=== PATIENT | male | born 1950 | race Caucasian/White ===

== ENCOUNTER 2018-03-15 19:08 | Outpatient (CLI) | payer MEDICARE, OTHER | END 2018-03-15 19:09 | disposition critical access hospital (66) | LOC: EMS 19:08 | PROVIDERS: ATTEND Surgery | DX: S09.90XA Unspecified injury of head, initial encounter (principal); R41.82 Altered mental status, unspecified; W10.8XXA Fall (on) (from) other stairs and steps, initial encounter; Y92.008 Other place in unspecified non-institutional (private) residence as the place of occurrence of the external cause | CPT/HCPCS: A0425; A0429 ==

== ENCOUNTER 2018-03-15 19:26 | Emergency (ER) | payer MEDICARE, OTHER ==
[2018-03-15] MEDS: SODIUM CHLORIDE 0.9% 1,000 ML IV ONE (19:38)
--- NOTE | 2018-03-15 19:39 | ED Physician Documentation ---
PD HPI MAJOR TRAUMA - Stated complaint Stated Complaint: FELL DOWN STAIRS, COMBATIVE, UNRESPONSIVE 3 MINUTE - Chief complaint Chief Complaint: Trauma Hd/Nk - History obtained from History obtained from: Family, EMS - History of Present Illness Mechanism of injury: Fell Where injury occurred: Home Timing - onset: How many minutes ago (30) Injury(ies) location: Head, Face Pain level max: 0 Pain level now: 0 Associated symptoms: LOC, Amnesia Symptoms improve with: Nothing Worsens with: Other (nothing) Contributing factors: Intoxicated. No: Anticoagulated Similar symptoms before: Has not had sx before Recently seen: Not recently seen - Additional information Additional information: 67-year-old male with history of hypertension and CAD and a retired orthopedic surgeon here with EMS reported to have fallen 7 steps down the stairs of their house a few minutes ago. Per EMS the reported that he had probably 3 glasses of wine prior to falling. When they arrive patient was confused and combative. Patient arrived here on hard c-collar and cooperative. Patient does not recall what happened to him.Patient is denying any pain from any part of his body.Charge nurse called a trauma alert. Nurse funeral home makeup artist at the bedside. Trauma general surgeon arrived at 1943.Surgeon evaluated patient and spoke to the family and wanted chest x-ray done prior to taking the patient to the CT scan. Review of Systems Unable to obtain: Confused, Intoxicated Ten Systems: 10 systems reviewed and negative Constitutional: denies: Fever Eyes: denies: Decreased vision Throat: denies: Dental pain / toothache Cardiac: denies: Chest pain / pressure Respiratory: denies: Dyspnea GI: denies: Abdominal Pain, Nausea, Vomiting Musculoskeletal: denies: Neck pain, Back pain, Extremity pain Neurologic: reports: Confused, Altered mental status, Head injury, LOC. denies: Generalized weakness, Focal weakness, Difficulty speaking, Syncope, Seizure, Headache PD PAST MEDICAL HISTORY - Past Medical History Past Medical History: No Cardiovascular: Hypertension Respiratory: None Neuro: None Endocrine/Autoimmune: None GI: None : None HEENT: None Psych: None Musculoskeletal: None Derm: None - Past Surgical History Past Surgical History: Yes General: Hiatal hernia repair - Present Medications Home Medications: Ambulatory Orders Medication Instructions Recorded Confirmed Diltiazem HCl [Diltiazem ER] 240 mg PO DAILY 08/22/14 11/18/18 Diltiazem HCl [Diltiazem ER] 240 mg PO DAILY #30 capsule.er 12/17/13 03/15/18 Enalapril Maleate [Vasotec] 20 mg PO BID 12/17/13 03/15/18 Naproxen [Naprosyn] 250 mg PO BID 03/15/18 03/15/18 - Allergies Allergies/Adverse Reactions: Allergies Allergy/AdvReac Type Severity Reaction Status Date / Time No Known Drug Allergies Allergy Verified 03/15/18 19:33 - Social History Does the pt smoke?: No Smoking Status: Never smoker Does the pt drink ETOH?: Yes Does the pt have substance abuse?: No - Immunizations Immunizations are current?: Yes - POLST Patient has POLST: No PD ED PE NORMAL - General General: No acute distress, Well developed/nourished, Other (Awake alert and cooperative) - HEENT HEENT: Atraumatic, PERRL, EOMI, Ears normal, Moist mucous membranes, Pharynx benign - Neck Neck: Other (Hard c-collar on) - Cardiac Cardiac: RRR, No murmur - Respiratory Respiratory: No respiratory distress, Clear bilaterally - Abdomen Abdomen: Normal bowel sounds, Soft, Non tender, Non distended - Back Back: No CVA TTP, No spinal TTP - Derm Derm: Normal color, Warm and dry - Extremities Extremities: No deformity, No tenderness to palpate, Normal ROM s pain, No edema - Neuro Neuro: armoured car escort 2-12 intact, No motor deficit, No sensory deficit, Normal speech, Other (Awake alert and oriented to his name, date and place. Disoriented to situation and event that occurred prior to coming to the emergency room) Eye Opening: Spontaneous Motor: Obeys Commands Verbal: Confused GCS Score: 14 - Psych Psych: Normal mood, Normal affect Results - Vitals Vitals: Vital Signs - 24 hr 03/15/18 03/15/18 03/15/18 19:27 19:50 20:15 Temperature 36.6 C Heart Rate 72 74 72 Respiratory 18 16 20 Rate Blood Pressure 169/87 H 165/92 H O2 Saturation 97 94 94 03/15/18 03/15/18 03/15/18 20:25 20:46 21:18 Temperature Heart Rate 74 74 76 Respiratory 14 14 20 Rate Blood Pressure 158/94 H 157/87 H 175/87 H O2 Saturation 96 99 95 03/15/18 03/15/18 03/15/18 21:35 22:02 22:14 Temperature Heart Rate 74 78 81 Respiratory 15 16 14 Rate Blood Pressure 168/78 H 168/78 H 176/79 H O2 Saturation 95 95 96 03/15/18 22:27 Temperature Heart Rate 78 Respiratory 14 Rate Blood Pressure 171/88 H O2 Saturation 95 Oxygen O2 Source Room air - Labs Labs: Laboratory Tests 03/15/18 03/15/18 03/15/18 19:35 19:35 19:35 WBC 7.2 RBC 4.81 Hgb 15.4 Hct 45.3 MCV 94.2 H MCH 32.0 H MCHC 33.9 RDW 13.0 Plt Count 220 MPV 7.2 L Neut # (Auto) 3.8 Lymph # (Auto) 2.4 [place] # (Auto) 0.8 Eos # (Auto) 0.1 Baso # (Auto) 0.0 Absolute Nucleated RBC 0.01 Nucleated RBC % 0.1 Sodium 135 Potassium 3.4 L Chloride 103 Carbon Dioxide 23 Anion Gap 9.0 BUN 20 Creatinine 0.9 Estimated GFR (MDRD) 84 L Glucose 167 H Calcium 8.6 Total Bilirubin 0.8 AST 31 ALT 31 Alkaline Phosphatase 62 Total Creatine Kinase 318 H Troponin I < 0.04 Total Protein 7.1 Albumin 4.3 Globulin 2.8 Albumin/Globulin Ratio 1.5 Lipase 31 Urine Color Urine Clarity Urine pH Ur Specific [place] Urine Protein Urine Glucose (UA) Urine Ketones Urine Occult Blood Urine Nitrite Urine Bilirubin Urine Urobilinogen Ur Leukocyte Esterase Ur Microscopic Review Urine Culture Comments Ethyl Alcohol 03/15/18 03/15/18 19:35 20:00 WBC RBC Hgb Hct MCV MCH MCHC RDW Plt Count MPV Neut # (Auto) Lymph # (Auto) [place] # (Auto) Eos # (Auto) Baso # (Auto) Absolute Nucleated RBC Nucleated RBC % Sodium Potassium Chloride Carbon Dioxide Anion Gap BUN Creatinine Estimated GFR (MDRD) Glucose Calcium Total Bilirubin AST ALT Alkaline Phosphatase Total Creatine Kinase Troponin I Total Protein Albumin Globulin Albumin/Globulin Ratio Lipase Urine Color YELLOW Urine Clarity CLEAR Urine pH 6.0 Ur Specific [place] 1.025 Urine Protein NEGATIVE Urine Glucose (UA) NEGATIVE Urine Ketones TRACE Urine Occult Blood TRACE-LYSE Urine Nitrite NEGATIVE Urine Bilirubin NEGATIVE Urine Urobilinogen 0.2 (NORMAL) Ur Leukocyte Esterase NEGATIVE Ur Microscopic Review NOT INDICATED Urine Culture Comments NOT INDICATED Ethyl Alcohol 228.4 PD MEDICAL DECISION MAKING - ED course Complexity details: re-evaluated patient (2224 patient updated on recommendation of reservation agent from Shannan Mosley. Particularly about controlling his blood pressure.), considered differential (Subdural hemorrhage, subarachnoid hemorrhage, brain contusion, concussion, alcohol intoxication), d/w patient, d/w family ([address] family informed of CT head scan abnormality results. Explained importance of being transferred to a higher level of care. They agreed.2199 patient and family updated on the transfer via helicopter and they agreed.), d/w work and family life consultant (2217 Telephone call from Shannan Mosley reservation agent Dr. Heart. Case discussed and updated her on patient's current neuro status and blood pressure. She stated she wants to systolic blood pressure to be 140 or less. She recommended giving labetalol and Nitropaste.), other (2056 radiologist transportation aid informed me that there is a subarachnoid hemorrhage in the right MCA distribution. 2114Spoke to transfer center regarding patient case. She informed me that Dr. Driscoll is in surgery right now and would like more information about patient's condition and CT head scan. Information provided to the transfer center. 2199 Her [facility] transfer center had called back and Dr. box had accepted the patient transfer. But the reservation agent may be calling to me to get more information as a work and family life consultant.) Departure - Departure Disposition: 02 Transfer Acute Care Hosp Clinical Impression: Traumatic subdural hemorrhage Qualifiers: Encounter type: initial encounter Loss of consciousness presence/duration: with LOC of 30 min or less Qualified Code(s): S06.5X1A - Traumatic subdural hemorrhage with loss of consciousness of 30 minutes or less, initial encounter Alcohol intoxication Qualifiers: Complication of substance-induced condition: uncomplicated Qualified Code(s): F10.920 - Alcohol use, unspecified with intoxication, uncomplicated Condition: Stable
[2018-03-15 19:44] LABS: BASOPHILS % (AUTO) 0.7 %; EOSINOPHILS # (AUTO) 0.1 10^3/uL (0.0-0.7); EOSINOPHILS % (AUTO) 1.4 %; HGB - HEMOGLOBIN 15.4 g/dL (14.0-18.0); LYMPHOCYTES # (AUTO) 2.4 10^3/uL (1.5-3.5); LYMPHOCYTES % (AUTO) 33.8 %; MEAN CORPUSCULAR HGB CONC 33.9 g/dL (32.0-36.0); MEAN CORPUSCULAR VOLUME 94.2 fL (80.0-94.0); MEAN PLATELET VOLUME 7.2 fL (7.4-11.4); MONOCYTES # (AUTO) 0.8 10^3/uL (0.0-1.0); MONOCYTES % (AUTO) 10.9 %; NEUTROPHILS # (AUTO) 3.8 10^3/uL (1.5-6.6); NEUTROPHILS % (AUTO) 53.2 %; PLT - PLATELET COUNT 220 10^3/uL (130-450); RED BLOOD COUNT 4.81 10^6/uL (4.70-6.10); WHITE BLOOD COUNT 7.2 x10^3/uL (4.8-10.8)
[2018-03-15 19:59] LABS: ALBUMIN 4.3 g/dL (3.2-5.5); ALBUMIN/GLOBULIN RATIO 1.5 (1.0-2.2); BILIRUBIN,TOTAL 0.8 mg/dL (0.2-1.0); CALCIUM 8.6 mg/dL (8.5-10.3); CREATININE 0.9 mg/dL (0.6-1.2); TOTAL PROTEIN 7.1 g/dL (6.7-8.2)
[2018-03-15 20:15] LABS: BILIRUBIN,URINE NEGATIVE (NEGATIVE); GLUCOSE, URINE (UA) NEGATIVE (NEGATIVE); KETONES,URINE (UA) TRACE mg/dL (NEGATIVE); LEUKOCYTE ESTERASE, URINE NEGATIVE (NEGATIVE); NITRITE,URINE NEGATIVE (NEGATIVE); OCCULT BLOOD,URINE TRACE-LYSE (NEGATIVE); PROTEIN,URINE NEGATIVE (NEGATIVE); UROBILINOGEN,URINE 0.2 (NORMAL) E.U./dL (NORMAL)
[2018-03-15 20:17] LABS: CLARITY,URINE CLEAR (CLEAR)
[2018-03-15] MEDS ORDERED: IOPAMIDOL-300 100 ML VIAL ONE (20:18)
--- NOTE | 2018-03-15 20:20 | XRAY Report ---
Reason: fall Procedure Date: 03/15/2018 Accession Number: [id number] / [id number] Procedure: XR - Chest 1 View X-Ray CPT Code: 87595 FULL RESULT: EXAM: CHEST RADIOGRAPHY EXAM DATE: 03/15/2018 07:56 PM. CLINICAL HISTORY: Fall. COMPARISON: None. TECHNIQUE: 1 view. FINDINGS: Lungs/Pleura: No focal opacities evident. No pleural effusion. No pneumothorax. Mediastinum: Within exam limitations, the cardiomediastinal contour is normal. Other: Multiple ECG leads overlie the chest. IMPRESSION: No acute findings. RADIA
--- NOTE | 2018-03-15 20:22 | XRAY Report ---
Reason: fall 7 feet intoxicated Procedure Date: 03/15/2018 Accession Number: [id number] / [id number] Procedure: XR - Pelvis 1 View CPT Code: FULL RESULT: EXAM: PELVIS RADIOGRAPHY EXAM DATE: 03/15/2018 07:56 PM. CLINICAL HISTORY: Fall 7 feet intoxicated. COMPARISON: None. TECHNIQUE: 1 view. FINDINGS: Bones: No acute fracture identified Joints: No dislocation or pubic symphysis widening. Moderate degenerative changes of the hip joints.. Soft Tissues: Unremarkable IMPRESSION: No acute findings. RADIA
[2018-03-15] MEDS: IOPAMIDOL-300 100 ML VIAL IVP ONE (20:25)
--- NOTE | 2018-03-15 20:47 | CT Report ---
Reason: fall, confused Procedure Date: 03/15/2018 Accession Number: [id number] / [id number] Procedure: CT - Cervical Spine W/O CPT Code: FULL RESULT: EXAM: CT CERVICAL SPINE WITHOUT CONTRAST DATE: 03/15/2018 08:13 PM. HISTORY: Fall, confused. COMPARISONS: None. TECHNIQUE: Thin-section axial images were acquired of the cervical spine without contrast. Post-processing: Coronal and sagittal reformats. Other: None. In accordance with CT protocol optimization, one or more of the following dose reduction techniques were utilized for this exam: automated exposure control, adjustment of mA and/or KV based on patient size, or use of iterative reconstructive technique. FINDINGS: Alignment: Mild leftward curvature inferior aspect cervical spine. Bones: No fracture or bone lesion. Interspace Levels/Facets: C1-C2: Minimal calcification adjacent to the dens. No significant stenosis. C2-C3: Facet hypertrophy without significant stenosis. C3-C4: Facet hypertrophy without significant stenosis. C4-C5: Anterior osteophytes with more prominent facet hypertrophy causing moderate to severe right and minimal left foraminal stenosis. C5-C6: Disk space narrowing with facet hypertrophy and small posterior osteophytes causing moderate to severe bilateral foraminal stenosis. C6-C7: Disk space narrowing with small osteophytes and facet hypertrophy with osteophytes eccentric to the left causing moderate left foraminal stenosis. C7-T1: Facet hypertrophy without significant stenosis. Other: Small right mastoid fluid. Ossicles within the nuchal ligament. IMPRESSION: Multilevel degenerative disk disease without evidence of cervical spine fracture. RADIA
--- NOTE | 2018-03-15 21:01 | CT Report ---
Reason: fall 7 feet/steps stairs, confused Procedure Date: 03/15/2018 Accession Number: [id number] / [id number] Procedure: CT - Head W/O CPT Code: FULL RESULT: EXAM: CT HEAD EXAM DATE: 03/15/2018 08:13 PM. CLINICAL HISTORY: Fall 7 feet/steps stairs, confused. COMPARISON: None. TECHNIQUE: Multiaxial CT images were obtained from the foramen magnum to the vertex. Reformats: Sagittal and coronal. IV contrast: None. In accordance with CT protocol optimization, one or more of the following dose reduction techniques were utilized for this exam: automated exposure control, adjustment of mA and/or KV based on patient size, or use of iterative reconstructive technique. FINDINGS: Parenchyma: Miller-white differentiation is distinct. No mass-effect or midline shift. Extraaxial Spaces: High density within the extra-axial space intercalating along the anterior aspect of the right middle cranial fossa and extending to the sylvian fissure as well as along the right frontal lobe. No significant mass-effect. Ventricles: Normal in size and position. Sinuses and Orbits: Small right mastoid fluid. Bones: No acute fracture seen. Other: None. IMPRESSION: Acute subarachnoid hemorrhage extending along the right middle cerebral artery to the anterior aspect of the right middle cranial fossa, right sylvian fissure as well as along the right frontal lobe. No significant mass-effect. No midline shift. RADIA The above findings were discussed with Valery Lomeli by Dr. David Marcelino at 21:00 hrs on 03/15/18.
--- NOTE | 2018-03-15 21:06 | CT Report ---
Reason: fell face forward, 7 feet, left facial contusion, Procedure Date: 03/15/2018 Accession Number: [id number] / [id number] Procedure: CT - Facial Bones W/O CPT Code: FULL RESULT: EXAM: CT MAXILLOFACIAL WITHOUT CONTRAST EXAM DATE: 03/15/2018 08:13 PM. CLINICAL HISTORY: Fell face forward, 7 feet, left facial contusion. COMPARISONS: None. TECHNIQUE: Thin-section axial images were acquired of the face without contrast. Post-processing: Coronal and sagittal reformats. Other: None. In accordance with CT protocol optimization, one or more of the following dose reduction techniques were utilized for this exam: automated exposure control, adjustment of mA and/or KV based on patient size, or use of iterative reconstructive technique. FINDINGS: Soft Tissue: Fat stranding in the left buccal region and left infraorbital tissues consistent with infiltrating hematoma. Orbits: Symmetric and unremarkable. Bones: There is a deformity of the nasal bones suggestive of an old fracture without significant displacement. There is some calcification adjacent to the left maxilla although without a well-defined fracture. Temporomandibular Joints: The temporomandibular joints are symmetric and normally located. Sinuses: Trace mucosal thickening. Other: None. IMPRESSION: 1. Left buccal and infraorbital hematoma without evidence of acute fracture. Old bilateral nasal bone fracture. RADIA
--- NOTE | 2018-03-15 21:18 | CT Report ---
Reason: fell forward, 7 steps stairs, intoxicated Procedure Date: 03/15/2018 Accession Number: [id number] / [id number] Procedure: CT - Chest W/ CPT Code: FULL RESULT: EXAM: CT CHEST EXAM DATE: 03/15/2018 08:22 PM. CLINICAL HISTORY: Fell forward, 7 steps stairs, intoxicated. COMPARISONS: None. TECHNIQUE: Routine helical CT imaging was performed through the chest. IV contrast: 100 mL Isovue-300. Reconstructions: Coronal and sagittal. In accordance with CT protocol optimization, one or more of the following dose reduction techniques were utilized for this exam: automated exposure control, adjustment of mA and/or KV based on patient size, or use of iterative reconstructive technique. FINDINGS: Examination mildly degraded by motion artifact. Lungs/Pleura: The lungs are clear. No consolidation, pleural effusion or pneumothorax. Patent airways. Mediastinum: Normal heart size. No aortic dissection. No mediastinal lymphadenopathy or hemorrhage. Bones: Minimally displaced fracture left anterolateral fourth rib. No additional acute fracture. There are several old healed left rib fractures. Visualized Abdomen: See separately dictated CT. Other: None. IMPRESSION: Minimally displaced fracture of the left fourth rib. Nondisplaced fractures of the left fifth, sixth and seventh ribs. No pneumothorax. Otherwise unremarkable exam. RADIA
--- NOTE | 2018-03-15 21:40 | CT Report ---
Reason: fall, intoxicated Procedure Date: 03/15/2018 Accession Number: [id number] / [id number] Procedure: CT - Abdomen/Pelvis W/ CPT Code: FULL RESULT: EXAM: CT ABDOMEN AND PELVIS EXAM DATE: 03/15/2018 08:22 PM. CLINICAL HISTORY: Fall, intoxicated. COMPARISONS: None. TECHNIQUE: Routine helical CT imaging was performed through the abdomen and pelvis. IV contrast: ISOVUE 300 100mL. Enteric contrast: No. Reconstructions: Coronal and sagittal. In accordance with CT protocol optimization, one or more of the following dose reduction techniques were utilized for this exam: automated exposure control, adjustment of mA and/or KV based on patient size, or use of iterative reconstructive technique. FINDINGS: Lung Bases: See separately dictated CT. Liver: There are multiple small circumscribed hypoattenuating lesions that are most likely cysts and measure up to 1.5 cm. No laceration or perihepatic fluid. Gallbladder/Bile Ducts: Unremarkable. Spleen: Normal. Pancreas: Normal. Adrenal Glands: Mild left adrenal thickening. Kidneys: Normal enhancement. Mild prominence of the left renal collecting system. 2 mm nonobstructing left renal stone inferiorly. Peritoneal Cavity/Bowel: Small hiatal hernia. Normal caliber bowel. There is diverticulosis. No free fluid or hemoperitoneum. No free air. No acute inflammatory changes. Normal appendix. Pelvic Organs: Mildly distended urinary bladder. The prostate gland is mildly enlarged. Vasculature: Mild atherosclerosis. Bones: No acute fracture. Other: Small fat-containing right inguinal hernia. IMPRESSION: No acute abnormality. RADIA
[2018-03-15 22:30] VITALS: BP 171/88
[2018-03-15] MEDS: LABETALOL 20 MG/4 ML SYRINGE IVP STA (22:34)
[2018-03-15] MEDS: NITROGLYCERIN 2% PASTE TOP STA (22:35)
== END 2018-03-15 22:50 | disposition short-term general hospital (02) ==
LOC: EDUNIT# → EDBD → ED 19:26
DX: S06.5X1A Traumatic subdural hemorrhage with loss of consciousness of 30 minutes or less, initial encounter (principal); S22.42XA Multiple fractures of ribs, left side, initial encounter for closed fracture; S00.532A Contusion of oral cavity, initial encounter; W10.9XXA Fall (on) (from) unspecified stairs and steps, initial encounter; Y92.009 Unspecified place in unspecified non-institutional (private) residence as the place of occurrence of the external cause; F10.920 Alcohol use, unspecified with intoxication, uncomplicated; I10 Essential (primary) hypertension; I25.10 Atherosclerotic heart disease of native coronary artery without angina pectoris
CPT/HCPCS: 36415; 70450; 70486; 71045; 71260; 72125; 72170; 74177; 80053; 81003; 82550; 83690; 84484; 85025; 96361; 96374; 99285; A9270; Q9967; 80320; 81001; 87086

== ENCOUNTER 2018-03-30 07:42 | Outpatient (CLI) | payer MEDICARE, OTHER ==
--- NOTE | 2018-03-30 08:25 | CT Report ---
Reason: SUBARACHNOID HEMORRHAGE Procedure Date: 03/30/2018 Accession Number: [id number] / [id number] Procedure: CT - Head W/O CPT Code: FULL RESULT: EXAM: CT HEAD EXAM DATE: 03/30/2018 07:54 AM. CLINICAL HISTORY: Subarachnoid hemorrhage. COMPARISON: Head CT 03/15/2018. TECHNIQUE: Multiaxial CT images were obtained from the foramen magnum to the vertex. Reformats: Sagittal and coronal. IV contrast: None. In accordance with CT protocol optimization, one or more of the following dose reduction techniques were utilized for this exam: automated exposure control, adjustment of mA and/or KV based on patient size, or use of iterative reconstructive technique. FINDINGS: Parenchyma: No acute intraparenchymal hemorrhage. No focal mass-effect, midline shift, or CT findings of acute infarction. Miller-white differentiation is distinct. Extraaxial Spaces: Normal for age. Previous hyperdense acute right-sided subarachnoid hemorrhage is no longer visible. No subdural or epidural collections identified. Ventricles: Normal in size and position. Sinuses and Orbits: Imaged paranasal sinuses, orbits, and mastoids show no significant abnormality. Bones: No evidence of fracture or calvarial defect. IMPRESSION: 1. Previous hyperdense right subarachnoid hemorrhage is no longer visible. 2. No focal mass-effect or new abnormality identified. RADIA
== END 2018-03-30 07:43 | disposition home or self-care (01) ==
LOC: DI 07:42
PROVIDERS: ATTEND Internal Medicine
DX: S06.6X9A Traumatic subarachnoid hemorrhage with loss of consciousness of unspecified duration, initial encounter (principal)
CPT/HCPCS: 70450

== ENCOUNTER 2018-07-23 13:30 | Outpatient (CLI) | payer MEDICARE ==
[2018-07-23 14:15] LABS: CREATININE 0.9 mg/dL (0.6-1.2)
== END 2018-07-23 13:31 | disposition home or self-care (01) ==
LOC: LAB 13:30
PROVIDERS: ATTEND Nurse Practitioner
DX: I10 Essential (primary) hypertension (principal)
CPT/HCPCS: 36415; 80048

== ENCOUNTER 2018-11-18 17:20 | Emergency (ER) | payer MEDICARE, OTHER ==
--- NOTE | 2018-11-18 17:40 | ED Physician Documentation ---
PD HPI ALTERED MENTAL STATUS - Stated complaint Stated Complaint: FEELING OFF - Chief complaint Chief Complaint: Neuro - History obtained from History obtained from: Patient, Family () - History of Present Illness Timing - onset: Today (67-year-old gentleman with history of traumatic subarachnoid hemorrhage last year. Subsequent to that was put on multiple antihypertensives most recently on Spironolactone. Today he woke early kind of feeling jittery and since then has had increased over normal tinnitus and feels out of it and jittery. No headache or head injury. No chest pain. No shortnes s of breath but he feels like occasionally has to take a deeper breath than normal.) Review of Systems Ten Systems: 10 systems reviewed and negative Constitutional: denies: Fever, Chills, Fatigue Cardiac: denies: Chest pain / pressure, Palpitations Respiratory: denies: Dyspnea, Cough GI: denies: Abdominal Pain, Constipation : denies: Dysuria, Frequency PD PAST MEDICAL HISTORY - Past Medical History Cardiovascular: Hypertension Respiratory: None Neuro: None Endocrine/Autoimmune: None GI: None : None HEENT: None Psych: None Musculoskeletal: None Derm: None - Past Surgical History Past Surgical History: Yes General: Hiatal hernia repair - Present Medications Home Medications: Ambulatory Orders Medication Instructions Recorded Confirmed Enalapril Maleate [Vasotec] 20 mg PO BID 12/17/13 03/15/18 Naproxen [Naprosyn] 250 mg PO BID 03/15/18 03/15/18 Chlorthalidone 20 mg 11/18/18 Spironolactone 25 mg PO 11/18/18 11/18/18 amLODIPine [Norvasc] 5 mg PO BID 11/18/18 11/18/18 - Allergies Allergies/Adverse Reactions: Allergies Allergy/AdvReac Type Severity Reaction Status Date / Time No Known Drug Allergies Allergy Verified 11/18/18 17:36 - Social History Does the pt smoke?: No Smoking Status: Never smoker Does the pt drink ETOH?: Yes Does the pt have substance abuse?: No - Immunizations Immunizations are current?: Yes - POLST Patient has POLST: No PD ED PE NORMAL - Vitals Vital signs reviewed: Yes - General General: Alert and oriented X 3, No acute distress - HEENT HEENT: PERRL, EOMI - Neck Neck: Supple, no meningeal sign, No bony TTP - Cardiac Cardiac: RRR, No murmur - Respiratory Respiratory: No respiratory distress, Clear bilaterally - Abdomen Abdomen: Soft, Non tender - Derm Derm: Normal color, Warm and dry - Extremities Extremities: No edema, No calf tenderness / cord - Neuro Neuro: Alert and oriented X 3, No motor deficit, No sensory deficit, Normal speech Eye Opening: Spontaneous Motor: Obeys Commands Verbal: Oriented GCS Score: 15 - Psych Psych: Normal mood, Normal affect Results - Vitals Vitals: Vital Signs - 24 hr 11/18/18 11/18/18 17:26 18:31 Temperature 36.4 C L Heart Rate 88 96 Respiratory 18 16 Rate Blood Pressure 158/90 H 140/82 H O2 Saturation 98 75 L Oxygen O2 Source Room air - EKG (time done) 1754 Rate: Rate (enter#) (79) Rhythm: NSR [place]: Normal Intervals: Normal IN QRS: Normal Ischemia: Normal ST segments Computer interpretation: Agree with computer - Labs Labs: Laboratory Tests 11/18/18 11/18/18 11/18/18 17:50 17:50 17:50 WBC 8.2 RBC 4.46 L Hgb 14.0 Hct 40.8 L MCV 91.5 MCH 31.4 H MCHC 34.3 RDW 13.5 Plt Count 271 MPV 9.1 Neut # (Auto) 5.6 Lymph # (Auto) 1.7 [place] # (Auto) 0.8 Eos # (Auto) 0.1 Baso # (Auto) 0.0 Absolute Nucleated RBC 0.00 Nucleated RBC % 0.0 Sodium 136 Potassium 3.8 Chloride 103 Carbon Dioxide 18 L Anion Gap 15.0 H BUN 29 H Creatinine 1.2 Estimated GFR (MDRD) 60 L Glucose 114 H Calcium 9.3 Magnesium 2.1 Total Bilirubin 0.9 AST 22 ALT 24 Alkaline Phosphatase 50 Troponin I < 0.04 Troponin I High Sens 6.8 Total Protein 7.7 Albumin 4.4 Globulin 3.3 Albumin/Globulin Ratio 1.3 Lipase 29 PD MEDICAL DECISION MAKING - ED course ED course: 67-year-old gentleman on 2 diuretics feeling off today and jittery. Only objective finding is elevated BUN and very mild acidosis which is acute. He plans to hold his diuretics and we will give him a couple of liters of IV fluid. Departure - Departure Disposition: 01 Home, Self Care Clinical Impression: Dehydration Tinnitus Qualifiers: Laterality: bilateral Qualified Code(s): H93.13 - Tinnitus, bilateral Hypertension Qualifiers: Hypertension type: essential hypertension Qualified Code(s): I10 - Essential (primary) hypertension Condition: Good Record reviewed to determine appropriate education?: Yes Instructions: ED Dehydration Comments: I agree with holding your diuretics pending follow-up with your primary care physician. Return for new or worsening symptoms.
[2018-11-18 17:56] LABS: BASOPHILS % (AUTO) 0.4 %; EOSINOPHILS # (AUTO) 0.1 10^3/uL (0.0-0.7); EOSINOPHILS % (AUTO) 0.6 %; LYMPHOCYTES # (AUTO) 1.7 10^3/uL (1.5-3.5); LYMPHOCYTES % (AUTO) 20.4 %; MEAN CORPUSCULAR HEMOGLOBIN 31.4 pg (27.0-31.0); MEAN CORPUSCULAR HGB CONC 34.3 g/dL (32.0-36.0); MEAN CORPUSCULAR VOLUME 91.5 fL (80.0-94.0); MEAN PLATELET VOLUME 9.1 fL (7.4-11.4); MONOCYTES # (AUTO) 0.8 10^3/uL (0.0-1.0); MONOCYTES % (AUTO) 9.5 %; NEUTROPHILS # (AUTO) 5.6 10^3/uL (1.5-6.6); PLT - PLATELET COUNT 271 10^3/uL (130-450); RED BLOOD COUNT 4.46 10^6/uL (4.70-6.10); RED CELL DISTRIBUTION WIDTH 13.5 % (12.0-15.0); WHITE BLOOD COUNT 8.2 x10^3/uL (4.8-10.8)
[2018-11-18 18:18] LABS: ALBUMIN 4.4 g/dL (3.2-5.5); ALBUMIN/GLOBULIN RATIO 1.3 (1.0-2.2); BILIRUBIN,TOTAL 0.9 mg/dL (0.2-1.0); CALCIUM 9.3 mg/dL (8.5-10.3); CREATININE 1.2 mg/dL (0.6-1.2); MAGNESIUM 2.1 mg/dL (1.7-2.8); TOTAL PROTEIN 7.7 g/dL (6.7-8.2)
[2018-11-18 18:26] LABS: TROPONIN I < 0.04 ng/mL (<0.49)
[2018-11-18 18:32] VITALS: BP 140/82
[2018-11-18] MEDS ORDERED: SODIUM CHLORIDE 0.9% 1,000 ML IV ONE (18:39)
[2018-11-18] MEDS ORDERED: LACTATED RINGERS 1,000 ML IV STA (18:40)
== END 2018-11-18 20:37 | disposition home or self-care (01) ==
LOC: ED 17:20
DX: E86.0 Dehydration (principal); E87.2 Acidosis; H93.19 Tinnitus, unspecified ear; I10 Essential (primary) hypertension; Z87.820 Personal history of traumatic brain injury
CPT/HCPCS: 36415; 80053; 83690; 83735; 84484; 85025; 93005; 96360; 99282; 99283; J7120

== ENCOUNTER 2023-09-07 08:01 | Emergency (ER) | payer MEDICARE, OTHER ==
--- NOTE | 2023-09-07 08:26 | ED Physician Documentation ---
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 He is on enalapril. Swelling began last night. He has taken some antihistamine at home. He has recently had a right hip replacement done. He is otherwise in good health without recent illness. Review of Systems Constitutional: denies: Fever Eyes: denies: Decreased vision Ears: denies: Ear pain Nose: denies: Congestion Throat: denies: Sore throat Respiratory: denies: Cough GI: denies: Vomiting, Diarrhea : denies: Dysuria, Frequency Skin: denies: Rash Musculoskeletal: denies: Neck pain, Back pain, Extremity pain Neurologic: denies: Generalized weakness, Focal weakness, Numbness PD PAST MEDICAL HISTORY - Past Medical History Cardiovascular: Hypertension Respiratory: None Neuro: None Endocrine/Autoimmune: None GI: None : None HEENT: None Psych: None Musculoskeletal: None Derm: None - Past Surgical History Past Surgical History: Yes General: Hiatal hernia repair - Present Medications Home Medications: Ambulatory Orders Medication Instructions Recorded Confirmed Enalapril Maleate [Vasotec] 20 mg PO BID 12/17/13 09/07/23 Naproxen [Naprosyn] 250 mg PO BID 03/15/18 09/07/23 Spironolactone 25 mg PO DAILY 11/18/18 09/07/23 amLODIPine [Norvasc] 5 mg PO BID 11/18/18 09/07/23 Aspirin [T[place]as Aspirin EC] 81 mg PO DAILY 09/07/23 09/07/23 HYDROcod/ACETAM 5/325 [[place] 5/325] 1 tab PO PRN PRN 09/07/23 09/07/23 - Allergies Allergies/Adverse Reactions: Allergies Allergy/AdvReac Type Severity Reaction Status Date / Time No Known Drug Allergies Allergy Verified 09/07/23 08:12 - Social History Does the pt smoke?: No Smoking Status: Never smoker Does the pt drink ETOH?: Yes ETOH Use: Wine Does the pt have substance abuse?: No - Immunizations Immunizations are current?: Yes - POLST Patient has POLST: No PD ED PE NORMAL - Vitals Vital signs reviewed: Yes (hypertensive ) - General General: Alert and oriented X 3, No acute distress, Well developed/nourished - HEENT HEENT: Atraumatic, PERRL, EOMI, Other (Swelling to the left side of the tongue is evident and causes some dysarthric speech.There does not appear to be any compromise to the airway.) - Neck Neck: Supple, no meningeal sign, No bony TTP - Cardiac Cardiac: RRR, No murmur - Respiratory Respiratory: No respiratory distress, Clear bilaterally - Abdomen Abdomen: Soft, Non tender - Back Back: No CVA TTP, No spinal TTP - Derm Derm: Normal color, Warm and dry, No rash - Extremities Extremities: No deformity, No edema - Neuro Neuro: Alert and oriented X 3, parachute repairer 2-12 intact, No motor deficit, No sensory deficit, Normal speech Eye Opening: Spontaneous Motor: Obeys Commands Verbal: Oriented GCS Score: 15 - Psych Psych: Normal mood, Normal affect Results - Vitals Vitals: Vital Signs - 24 hr 09/07/23 09/07/23 09/07/23 08:08 10:12 10:20 Temperature 36.3 C L 36.8 C Heart Rate 79 74 74 Respiratory 16 15 15 Rate Blood Pressure 148/67 H 161/85 H 161/85 H O2 Saturation 98 94 94 Oxygen O2 Source Room air PD Medical Decision Making - ED course Complexity details: re-evaluated patient, considered differential, d/w patient, d/w family ED course: 72-year-old male with what appears to be enalapril induced angioedema. He is administered dexamethasone orally and IM Benadryl. Within 1 hour and 40 minutes he has improvement in his symptoms and feels ready to be discharged to home. Departure - Departure Disposition: 01 Home, Self Care Clinical Impression: Angio-edema Qualifiers: Encounter type: initial encounter Qualified Code(s): T78.3XXA - Angioneurotic edema, initial encounter Condition: Stable Instructions: ED Angioedema Follow-Up: Jordan Ag MD [Primary Care Provider] - Comments: Joshua, today it looks like you have angioedema related to the enalapril. The recommendation is to discontinue the enalapril and take Benadryl or a non- sedating antihistamine regularly for the next 2 days. The expectation is resolution of the swelling of your tongue without a return of the swelling. Forms: PCP List Discharge Date/Time: 09/07/23 10:22
[2023-09-07] MEDS: diphenhydrAMINE INJ 50 MG/ML VIAL IM STA (08:31)
[2023-09-07] MEDS: DEXAMETHASONE 10 MG/ML VIAL PO STA (08:31)
[2023-09-07] MEDS: CHERRY SYRUP 10 ML UDC PO ONE (08:31)
[2023-09-07 10:23] VITALS: BP 161/85; O2SAT 94
== END 2023-09-07 10:22 | disposition home or self-care (01) ==
LOC: ED 08:01
DX: T78.3XXA Angioneurotic edema, initial encounter (principal); I10 Essential (primary) hypertension; Z96.641 Presence of right artificial hip joint; Z79.899 Other long term (current) drug therapy
CPT/HCPCS: 96372; 99283; A9270; J1200

== ENCOUNTER 2024-01-12 11:11 | Outpatient (CLI) | payer MEDICARE, OTHER ==
[2024-01-12 11:33] LABS: AST ASPARTATE AMINOTRANSFERASE 18 IU/L (10-42); BUN - BLOOD UREA NITROGEN 17 mg/dL (6-20); CALCIUM 9.5 mg/dL (8.5-10.3); CARBON DIOXIDE - CO2 24 mmol/L (21-32); CHLORIDE 103 mmol/L (101-111); CHOL/HDL RATIO 2.8 (<5.0); CHOLESTEROL 168 mg/dL; CREATININE 0.8 mg/dL (0.6-1.3); GFR - MDRD 95 (>89); GLUCOSE 130 mg/dL (74-104); HDL CHOLESTEROL 61 mg/dL; LDL CHOLESTEROL,CALCULATED 88 mg/dL; LDL/HDL RATIO 1.4 (<3.6); POTASSIUM 4.1 mmol/L (3.5-4.5); SODIUM 135 mmol/L (135-145); TRIGLYCERIDES 93 mg/dL; VLDL CHOLESTEROL 19 mg/dL
== END 2024-01-12 11:12 | disposition home or self-care (01) ==
LOC: LAB 11:11
PROVIDERS: ATTEND Internal Medicine
DX: N40.1 Benign prostatic hyperplasia with lower urinary tract symptoms (principal); I10 Essential (primary) hypertension; N13.8 Other obstructive and reflux uropathy; E78.2 Mixed hyperlipidemia
CPT/HCPCS: 36415; 80048; 80061; 83721; 84153; 84450